=== PATIENT | male | born 1980 | race Caucasian/White ===

== ENCOUNTER 2023-03-09 11:02 | Emergency (ER) | payer OTHER, SELFPAY ==
[2023-03-09] VITALS (9 sets, daily range): BP systolic 119–145; BP diastolic 65–84; PULSE 66–75; RESP 12–25; O2SAT 93–100
--- NOTE | ~2023-03-09 | CT_ITS ---
EXAMINATION: CTA chest PE protocol DATE: 03/09/2023 13:56 INDICATION: Chest pain. TECHNIQUE: Computed tomography angiography (CTA) of the chest was performed with 100 mL Omnipaque-350 intravenous contrast timed to evaluate the pulmonary arteries. Coronal maximum intensity projection 3D-reconstructions were created by the technologist. Automated exposure control and iterative reconst ruction technique were employed. The dose-length product was 977.64 mGy-cm. COMPARISON: Chest single view 03/09/2023 FINDINGS: The lungs demonstrate mild atelectasis. No pleural effusion. The heart size is normal. No p ericardial effusion. There is no pulmonary embolus. There are changes of cholecystectomy. There is di ffuse hepatic steatosis. There is mild thoracic spondylosis. IMPRESSION: 1. No pulmonary embolus. 2. Diffuse hepatic steatosis. Reviewed, dictated and finalized at location A.
--- NOTE | ~2023-03-09 | XR_ITS ---
EXAMINATION: XR chest 1V portable DATE: 03/09/2023 11:34 INDICATION: Midsternal chest pain. TECHNIQUE: A single frontal view of the chest was obtained. COMPARISON: None. FINDINGS: The chest demonstrates clear lungs without pneumonia, pleural effusion, or pneumothorax. Th e heart size is normal. IMPRESSION: 1. No acute cardiopulmonary disease. Reviewed, dictated and finalized at location A.
--- NOTE | 2023-03-09 11:06 | ECG_ITS ---
Measurements Intervals [place] Rate: 70 P: 7 [place]: 167 QRS: 28 QRSD: 144 T: -4 QT: 429 QTc: 464 Interpretive Statements SINUS RHYTHM RIGHT BUNDLE BRANCH BLOCK ABNORMAL ECG NO PREVIOUS ECG AVAILABLE FOR COMPARISON Electronically Signed On 03-09-2023 11:16:48 CDT by Robert Jeffries D.O.
--- NOTE | 2023-03-09 11:21 | ED.GENADULT ---
HPI - General Adult General Chief complaint: Chest Pain Stated complaint: CP x 1 hour Time Seen by Provider: 03/09/23 11:04 Source: patient and EMS Mode of arrival: EMS Limitations: no limitations History of Present Illness HPI narrative: Patient is a 42-year-old male with a history of hypertension, hyperlipidemia, hypothyroidism, presenting to the emergency department for evaluation of chest pain. Patient reports acute onset of chest pain while he was driving today. 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 Patient states chest pain was over the center of his chest described as an aching pressure in nature. No radiation to the back, jaw, neck, shoulder. No ripping or tearing sensation to the flank. Patient with associated shortness of breath and pleuritic pain. Patient reports history of negative stress testing in the past. He has a family history of coronary artery disease. He is a former cigarette smoker. He denies drug or alcohol use. Patient denies any lightheadedness, dizziness, syncope. Patient was given aspirin, nitroglycerin by EMS. Nitroglycerin slightly improved his pain. Patient here refusing Zofran, morphine. Blood pressure normal. Related Data Allergies Allergy/AdvReac Type Severity Reaction Status Date / Time Sulfa (Sulfonamide Allergy Unknown Verified 03/09/23 11:54 Antibiotics) Review of Systems Review of Systems: CONSTITUTIONAL: Denies fever, chills, or sweats. ENT: Denies rhinorrhea, congestion, sore throat, or otalgia. CARDIOVASCULAR: Reports chest pain, denies leg edema or palpitations RESPIRATORY: Denies cough or dyspnea. GASTROINTESTINAL: Denies abdominal pain, nausea, vomiting, or diarrhea. GENITOURINARY: Denies dysuria or hematuria. SKIN: Denies rash or itching. MUSCULOSKELETAL: Denies back pain, joint pain, or myalgia. NEUROLOGIC: Denies headache, numbness, or weakness. 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 EYES: PERRLA and EOMI. ENT: Nares clear, no rhinorrhea or epistaxis. Mucous membranes moist. NECK: Supple. CHEST: No respiratory distress, breathing even and non labored, mild chest wall tenderness HEART: Regular rate, sinus rhythm ABDOMEN: Obese, non distended, non tender EXTREMITIES: Normal range of motion. No edema. SKIN: Warm, dry, no rash. NEURO:No focal deficits. Alert and oriented x3 Course Vital Signs Vital signs: Vital Signs Pulse Rate 72 03/09/23 11:12 Respiratory Rate 12 03/09/23 11:12 Blood Pressure 145/72 H 03/09/23 11:12 Pulse Oximetry 93 03/09/23 11:12 Pulse Rate 66 03/09/23 12:01 Respiratory Rate 24 H 03/09/23 12:01 Blood Pressure 131/79 03/09/23 12:01 Pulse Oximetry 97 03/09/23 12:01 Oxygen Delivery Room Air 03/09/23 11:27 Medical Decision Making MDM Narrative Medical decision making narrative: Medical decision making narrative: -Presentation: Patient presented for evaluation of chest pain that is improved at the time of assessment, patient did decline additional medications such as morphine, Zofran. Unclear if the chest pain resolved with nitroglycerin, patient states he feels that it resolved with rest. -DDX includes but is not limited to: ACS, PE, pericarditis, myocarditis, pneumonia, acid reflux, atypical chest pain, biliary colic -Co-morbidities complicating care: Obesity, hypertension -Social determinants of health: Poor health literacy -External Chart Review: External EMR record reviewed, I personally reviewed the patient's chart and recent notes -Hx from independent Sources: None -Discussion of
[2023-03-09 11:33] LABS: Basophils Absolute Auto 0.1 K/mm3 (0.0-0.1); Basophils Percent Auto 1.2 % (0.2-1.2); Eosinophils Absolute Auto 0.2 K/mm3 (0-0.3); Eosinophils Percent Auto 2.4 % (0-4.4); Hematocrit 41.5 % (42.0-52.0); Hemoglobin 13.1 g/dL (14.0-18.0); Immature Granulocyte Absolute 0.03 K/mm3 (0.00-0.031); Immature Granulocyte Percent A 0.5 % (0-0.5); Lymphocytes Absolute Auto 1.63 K/mm3 (0.9-3.2); Lymphocytes Percent Auto 24.6 % (18.3-44.2); Mean Corpuscular HGB Conc 31.6 g/dl (32-36); Mean Corpuscular Volume 79.3 fl (80-100); Mean Platelet Volume 11.4 fl (7.4-10.4); Monocytes Absolute Auto 0.6 K/mm3 (0.1-0.6); Monocytes Percent Auto 8.4 % (2.6-8.5); Neutrophils Absolute Auto 4.2 K/mm3 (1.3-6.7); Neutrophils Percent Auto 62.9 % (45.5-73.1); Platelet Count Result 286 k/mm3 (150-375); Red Blood Count 5.23 M/mm3 (4.6-6.20); Red Cell Distribution Width 15.2 % (11.5-14.5); White Blood Count 6.6 K/mm3 (4.5-10.0)
[2023-03-09] MEDS: SODIUM CHLORIDE 0.9% IV 1,000 ML 999 ML IV CONT (11:42)
[2023-03-09 11:48] LABS: Prothrombin Time 14.2 Seconds (11.1-14.7)
[2023-03-09 11:49] LABS: Partial Thromboplastin Time 29.5 SECONDS (22.3-36.8)
[2023-03-09 12:01] LABS: Alanine Aminotransferase 62 U/L (6-50); Albumin Level 4.3 g/dL (3.5-5.1); Alkaline Phosphatase 118 U/L (38-126); Anion Gap 8 mmol/L (8-16); Aspartate Amino Transferase 60 U/L (17-59); Bilirubin,Total 0.7 mg/dL (0.2-1.3); Blood Urea Nitrogen 13 mg/dL (9-20); Calcium 9.2 mg/dL (8.4-10.2); Carbon Dioxide 31 mmol/L (22-30); Chloride 99 mmol/L (98-107); Estimated CRCL calculation 132 ml/min; Estimated Glomerular Filt Rate > 60; Glucose 96 mg/dL (65-110); Lipase 190 U/L (23-300); Potassium 3.7 mmol/L (3.4-5.0); Sodium 138 mmol/L (137-145)
[2023-03-09 12:09] LABS: Troponin I < 0.012 ng/mL (0.000-0.034)
[2023-03-09 13:43] LABS: D Dimer 0.49 ug/mL (<0.48)
[2023-03-09 15:05] LABS: Troponin I < 0.012 ng/mL (0.000-0.034)
== END 2023-03-09 15:56 | disposition home or self-care (01) ==
PROVIDERS: Emergency Provider Emergency Medicine
DX: R07.89 Other chest pain (principal); I10 Essential (primary) hypertension; E78.5 Hyperlipidemia, unspecified; E03.9 Hypothyroidism, unspecified; Z87.891 Personal history of nicotine dependence; K76.0 Fatty (change of) liver, not elsewhere classified
CPT/HCPCS: 36415; 71045; 71275; 80053; 83690; 84484; 85025; 85380; 85610; 85730; 93005; 96360; 99284; J7030; Q9967